=== PATIENT | male | born 1965 | race Caucasian/White ===

== ENCOUNTER 2017-04-04 10:58 | Emergency (ER) | payer SELFPAY ==
[~2017-04-04] VITALS: Ht 167.6 cm; Wt 86.2 kg
[2017-04-04 11:00] VITALS: BP 128/78; PULSE 76; RESP 16; TEMP 97.9; O2SAT 96
--- NOTE | 2017-04-04 11:17 | NUR ---
Patient to ER bed 8 to gown for evaluation. Side rails up. Report given to Cristi MCNEAL.
--- NOTE | 2017-04-04 11:24 | NUR ---
DR MARLEY AT BEDSIDE FOR EVALUATION
--- NOTE | 2017-04-04 11:25 | NUR ---
PT arrived to ED via walk in a/o x 4 with c/o lacerations to face. 1 in Lac to bridge of nose. 1 in Lac above L eye. Swelling present to the L eye. Skant blood present to dressing upon arrival. PT denies pain PT states injury occured while playing soccer. Injury occured from rubber spiked cleat. Does not appear in any immediate distress. Will continue to monitor.
[2017-04-04] MEDS ORDERED: DIPH-TET-PERTUS Vaccine 0.5 ML VIAL (ADACEL) IM ONE (11:30)
[2017-04-04] MEDS ORDERED: LIDOCAINE/EPI 1% 1:100000 20 ML VIAL IJ ONE (12:15)
[2017-04-04] MEDS ORDERED: LIDOCAINE 1%, 20 ML MDV 20 ML ONE (12:21)
--- NOTE | 2017-04-04 12:45 | NUR ---
DR. MARLEY AT BEDSIDE FOR SUTURE PLACEMENT
--- NOTE | 2017-04-04 13:05 | NUR ---
PLACED SUTURES PT. TOLERATED WELL
[2017-04-04 13:45] VITALS: BP 121/71; PULSE 71; RESP 17; TEMP 98.1; O2SAT 96
--- NOTE | 2017-04-04 13:45 | NUR ---
Patient given written and verbal discharge instructions and verbalizes understanding. ER MD Dr. Landeros discussed with patient the results and treatment provided. Patient in stable condition. ID arm band removed. Rx of ibuprofen and augmentin given. Patient educated on pain management and to follow up with PMD. Pain Scale 0/10 Opportunity for questions provided and answered.
== END 2017-04-04 13:45 | disposition home or self-care (01) ==
LOC: SED 10:58
DX: S01.112A Laceration without foreign body of left eyelid and periocular area, initial encounter (principal); S01.21XA Laceration without foreign body of nose, initial encounter; R03.0 Elevated blood-pressure reading, without diagnosis of hypertension; W21.02XA Struck by soccer ball, initial encounter; Y93.66 Activity, soccer; Y99.8 Other external cause status; Y92.89 Other specified places as the place of occurrence of the external cause
CPT/HCPCS: 12013; 12052; 70160; 99285; J2001; 90715